=== PATIENT | female | born 2000 | race Caucasian/White ===

== ENCOUNTER 2022-03-26 10:16 | Emergency (ER) | payer BC, SELFPAY ==
--- NOTE | ~2022-03-26 | XR_ITS ---
XR lumbar spine 2-3V DATE: 03/26/2022 12:09 INDICATION: Injury while lifting weights. Extreme pain. TECHNIQUE: AP, lateral, coned lateral lumbosacral views COMPARISON: None FINDINGS: Normal alignment of the lumbar spine. No fracture or dislocation or bone destruction. The lumbar pedicles are intact. Lumbar and lumbosacral interspaces are well preserved. Normal sacroiliac joints. IMPRESSION: Negative Reviewed, dictated and finalized at location A. IMPRESSION: Negative
[2022-03-26 10:20] VITALS: BP 129/68; PULSE 80; RESP 21; TEMP 36.4; O2SAT 100
--- NOTE | 2022-03-26 11:37 | ED.BACK ---
HPI - Back Pain/Injury General Chief Complaint: Back Pain/Injury Stated Complaint: left low back pain Time Seen by Provider: 03/26/22 11:30 Source: patient Mode of arrival: wheelchair Limitations: no limitations History of Present Illness HPI Narrative: Patient is a 21-year-old female complaining of left lower back pain, 10 out of 10, dull, aching, rating to her left lower extremity, worse with movement, started while she was doing lifts of approximately 235 pounds of weight. Patient denies any incontinence, weakness or numbness. 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 Related Data Allergies Allergy/AdvReac Type Severity Reaction Status Date / Time No Known Allergies Allergy Verified 03/26/22 11:19 Review of Systems Review of Systems: All systems reviewed & are unremarkable except as noted in HPI and below Constitutional: Constitutional: Denies body ache(s), Denies chills, Denies excessive sweating, Denies fatigue, Denies fever(s), Denies headache(s), Denies lethargy, Denies malaise, Denies weakness and Denies weight loss Eyes: Eyes: Denies blurry vision, Denies change in vision and Denies loss of vision ENT: Denies dizziness, Denies ear discharge, Denies headache(s), Denies lip swelling, Denies epistaxis, Denies nasal congestion, Denies neck pain, Denies throat swelling and Denies tongue swelling Cardiovascular: Cardiovascular: Denies chest pain, Denies chest pain at rest, Denies chest pain with activity, Denies diaphoresis, Denies rapid heart rate, Denies edema, Denies irregular heart rhythm, Denies lightheadedness, Denies palpitations, Denies dyspnea and Denies dyspnea on exertion Respiratory: Respiratory: Denies chest congestion, Denies cough, Denies hemoptysis, Denies dyspnea and Denies dyspnea on exertion Gastrointestinal: Gastrointestinal: Denies abdominal pain, Denies melena, Denies hematochezia, Denies diarrhea, Denies nausea, Denies vomiting and Denies hematemesis Musculoskeletal: Musculoskeletal: Denies abnormal gait, Denies deformity, Denies joint swelling, Denies limited range of motion, Denies neck pain and Denies numbness Neurologic: Denies Abnormal speech present, Denies abnormal gait, Denies confusion, Denies dizziness, Denies headache(s), Denies focal weakness, Denies loss of vision, Denies numbness, Denies Other visual disturbances, Denies Sensory deficit (Neuro) and Denies weakness Psychiatric: Psychiatric: Denies confusion, Denies depression, Denies auditory hallucinations, Denies homicidal ideation and Denies suicidal ideation Endocrine: Endocrine: Denies cold intolerance, Denies excessive sweating, Denies fatigue, Denies heat intolerance and Denies palpitations Hematologic/Lymphatic: Hematologic/Lymphatic: Denies easy bleeding and Denies easy bruising Allergic/Immunologic: Allergic/Immunologic: Denies lip swelling, Denies throat swelling and Denies tongue swelling PMFSH Comments Past medical history: None Family history: None Social history: Non-smoker no EtOH or drug use Exam Const: General: cooperative, healthy appearing, comfortable, well developed, alert and awake; No confusion Orientation/consciousness: oriented to person, oriented to place, oriented to time, patient oriented x3 and No confusion Limitations: no limitations Other: Moderate distress due to pain HENMT: Head: normal to inspection, normocephalic and atraumatic Ears: hearing grossly normal bilaterally, TM normal on the right and TM normal on the left General nose exam: Normal external nose present, Normal nares present and No nasal discharge present Face and sinus: normal facial exam Mouth: Yes Normal oral and palatal mucosa present, Yes lip normal, Yes tongue normal and Yes oropharynx normal Throat: posterior oropharynx normal, tonsils normal and uvula midline Eyes: General: appearance normal, both eyes and all related structures Pupils: Equal, round and reactive pupils present EOM: EOMs intac
[2022-03-26] MEDS: KETOROLAC (*BKC) 60 MG/2 ML VIAL IM (11:46)
[2022-03-26] MEDS: HYDROcodone/acetaminophen (*CRX) 7.5-325 MG TABLET 1 TAB PO (11:47)
[2022-03-26] MEDS: diazePAM INJ (*CRX) 10 MG/2 ML SYRINGE IM (11:48)
--- NOTE | 2022-03-26 11:51 | PC.NURSE ---
To xray at this time.
[2022-03-26 13:18] VITALS: BP 124/74; PULSE 74; RESP 20; O2SAT 100
== END 2022-03-26 13:19 | disposition home or self-care (01) ==
PROVIDERS: Emergency Provider Emergency Medicine; PCP Physician Assistant
DX: S39.012A Strain of muscle, fascia and tendon of lower back, initial encounter (principal); X50.0XXA Overexertion from strenuous movement or load, initial encounter; Y93.B3 Activity, free weights
CPT/HCPCS: 72100; 81025; 96372; 99284; A9270; J1885; J3360